=== PATIENT | male | born 1950 | race Caucasian/White ===

== ENCOUNTER → 2023-03-07 13:07 | Outpatient (CLI) | payer MEDICARE, OTHER, SELFPAY | PROVIDERS: PCP Family Medicine; Referring Provider Family Medicine; Visit Provider Family Medicine | DX: R06.00 Dyspnea, unspecified (principal); R06.2 Wheezing; Z87.891 Personal history of nicotine dependence; J98.8 Other specified respiratory disorders | CPT/HCPCS: 94060; 94726; 94729 ==